=== PATIENT | male | born 1995 | race Caucasian/White ===

== ENCOUNTER 2017-07-13 19:18 | Emergency (ER) | payer BC ==
[~2017-07-13] VITALS: Ht 172.7 cm; Wt 100.0 kg
[~2017-07-13 19:18] MED LIST: FAMO20 PO; PRED20 PO
[2017-07-13 19:19] VITALS: BP 140/68; PULSE 55; RESP 16; TEMP 98.5; O2SAT 99
--- NOTE | 2017-07-13 20:12 | PD ---
HPI Chief Complaint: Injury Time Seen by Provider: 19:50 Travel History International Travel<30 days: No Contact w/Intl Traveler<30days: No Traveled to known affect area: No History of Present Illness HPI 21-year-old [id number] white male presents emergency Department with complaints of right hand pain after punching a wall yesterday. He states that he had been drinking alcohol. Pain is mild/moderate. Worse with movement of the hand. He denies any sensory changes. No weakness. PFSH Past Medical History Medical History: Denies Significant Hx Diminished Hearing: No Tetanus Vaccination: > 5 Years Past Surgical History Narrative Surgical Tonsillectomy, sinus surgery Tonsillectomy: Yes Other Surgery: Yes (SINUS SURGERY) Social History Alcohol Use: Yes (ONCE IN A WHILE) Tobacco Use: No Substance Use: No Allergies-Medications (Allergen,Severity, Reaction): Coded Allergies: No Known Allergies (Unverified Adverse Reaction, Unknown, 07/13/17) Reported Meds & Prescriptions Reported Meds & Active Scripts Active Diclofenac Sodium DR (Diclofenac Sodium) 75 Mg Tabdr 75 Mg PO BID Review of Systems General / Constitutional: No: Fever Eyes: No: Visual changes HENT: No: Headaches Cardiovascular: No: Chest Pain or Discomfort Respiratory: No: Shortness of Breath Gastrointestinal: No: Abdominal Pain Genitourinary: No: Dysuria Musculoskeletal: Positive: Arthralgias, Limited ROM, Pain Skin: No Rash Neurologic: No: Weakness Psychiatric: No: Depression Endocrine: No: Polydipsia Hematologic/Lymphatic: No: Easy Bruising Physical Exam Narrative GENERAL: This is a well-nourished, well-developed patient, in no apparent distress. SKIN: No rashes, ecchymoses or lesions. Warm and dry. HEAD: Atraumatic. Normocephalic. EYES: PERRL, EOMI, no discharge or injection. No scleral icterus. EARS: Clear NOSE: Nasal turbinates appear normal. THROAT: Mucosa pink and moist. Airway patent. NECK: Trachea midline. supple, moves head freely. LUNGS: Clear to auscultation. CV: Regular in rhythm. ABDOMEN: Soft nontender. EXT: No clubbing cyanosis. Examination the right hand reveals pain and swelling over the third, fourth, fifth metacarpals distal third. The skin is intact. He has full range of motion. Intact median/ulnar/radial nerves. Good Refill. Data Data Last Documented VS Vital Signs Date Time Temp Pulse Resp B/P (MAP) Pulse Ox O2 Delivery O2 Flow Rate FiO2 07/13/17 19:19 98.5 55 16 140/68 (92) 99 Room Air Orders Orders Hand, Complete ([place]) (07/13/17 19:52) Ice/Cold Pack (07/13/17 19:52) MDM Medical Decision Making Medical Screen Exam Complete: Yes Emergency Medical Condition: Yes Medical Record Reviewed: Yes Interpretation(s) Last 24 hours Impressions Hand X-Ray 07/13/171951 Signed Impressions: Service Date/Time: Thursday, July 13, 2017 20:09 - CONCLUSION: No acute disease. Elder Maldonado MD Differential Diagnosis MDM: High Differential diagnoses: Fracture, sprain, strain, dislocation, contusion, neurovascular injury Narrative Course X-ray is negative for bony injury. This is right hand contusion Diagnosis Primary Impression: Contusion of right hand Qualified Codes: S60.221A - Contusion of right hand, initial encounter Patient Instructions: General Instructions Additional Instructions: Rest. Elevation. Ice. Diclofenac. Follow-up with a medical doctor in one week. Return to the ER for any problems. Med/Other Pt SpecificInfo: Prescription(s) given Scripts Diclofenac Sodium DR (Diclofenac Sodium DR) 75 Mg Tabdr 75 MG PO BID, #20 TAB 0 Refills Prov: Peter Kaiser MD 07/13/17 Disposition: 01 DISCHARGE HOME Condition: Stable Scotty Schneider Jul 13, 2017 20:12
--- NOTE | 2017-07-13 20:22 | RADRPT ---
EXAM DATE/TIME: 07/13/2017 20:09 [facility] COMPARISON: No previous studies available for comparison. INDICATIONS : Right distal hand pain, hit wall with fist MEDICAL HISTORY : None. SURGICAL HISTORY : None. ENCOUNTER: Initial ACUITY: 2 days PAIN SCORE: 6/10 LOCATION: Right Hand FINDINGS: Three view examination of the right hand demonstrates no soft tissue swelling, dislocation, or fractu re. The carpal bones appear intact. The interphalangeal and metacarpophalangeal joints are intact. Bony mineralization is normal. CONCLUSION: No acute disease. Elder Maldonado MD on July 13, 2017 at 20:19 Board Certified Radiologist. This report was verified electronically.
[2017-07-13] MEDS ORDERED: DICL75TA PO (20:35)
== END 2017-07-13 20:55 | disposition home or self-care (01) ==
LOC: NEPD 19:18
DX: S60.221A Contusion of right hand, initial encounter (principal); Z79.899 Other long term (current) drug therapy; W22.8XXA Striking against or struck by other objects, initial encounter
CPT/HCPCS: 73130; 99283